=== PATIENT | female | born 1965 ===

== ENCOUNTER 2020-01-14 10:45 | Inpatient (IN) | payer OTHER ==
[~2020-01-14] VITALS: Ht 157.5 cm; Wt 77.1 kg
[2020-01-14] MEDS ORDERED: NOXIFOL-D32500 UNIT PO (12:09)
[2020-01-14] MEDS ORDERED: ATACAND32 MG PO (12:09)
[2020-01-21] MEDS ORDERED: CANDESARTAN CIL16 MG (08:22)
== END 2020-01-23 16:28 | disposition home or self-care (01) | DRG 331 ==
LOC: SURG 01-21 06:33 → O/R 01-21 06:33 → SURH 01-21 08:30 → SURG 01-21 14:45
PROVIDERS: ADMIT Colon & Rectal Surgery; ATTEND Colon & Rectal Surgery
PROC: 0DJD8ZZ Inspection of Lower Intestinal Tract, Via Natural or Artificial Opening Endoscopic (ICD-10-PCS; 2020-01-21)
PROC: 3E0F7GC Introduction of Other Therapeutic Substance into Respiratory Tract, Via Natural or Artificial Opening (ICD-10-PCS; 2020-01-21)
PROC: 0DTN4ZZ Resection of Sigmoid Colon, Percutaneous Endoscopic Approach (ICD-10-PCS; principal; 2020-01-21 08:30)
DX: K57.32 Diverticulitis of large intestine without perforation or abscess without bleeding (principal); K64.2 Third degree hemorrhoids; I11.9 Hypertensive heart disease without heart failure; M79.7 Fibromyalgia; G43.909 Migraine, unspecified, not intractable, without status migrainosus; E66.8 Other obesity; R73.01 Impaired fasting glucose; J45.20 Mild intermittent asthma, uncomplicated